=== PATIENT | male | born 1980 | race Caucasian/White ===

== ENCOUNTER 2024-08-29 18:23 | Emergency (ER) | payer MEDICAID ==
[~2024-08-29] VITALS: Ht 198.1 cm; Wt 102.3 kg
[2024-08-29 18:27] VITALS: BP 170/116; PULSE 94; RESP 18; TEMP 98.9; O2SAT 97
[2024-08-29] MEDS ORDERED: CEPH-585 PO (22:49)
== END 2024-08-29 23:19 | disposition home or self-care (01) ==
LOC: ER 18:24
DX: L03.031 Cellulitis of right toe (principal)
CPT/HCPCS: 73660; 99283